=== PATIENT | female | born 1990 | race Caucasian/White ===

== ENCOUNTER 2017-11-13 13:51 | Emergency (ER) | payer OTHER ==
[~2017-11-13] VITALS: Ht 160 cm; Wt 96.2 kg
== END 2017-11-13 22:22 | disposition home or self-care (01) ==
LOC: ER 13:51
DX: R10.32 Left lower quadrant pain (principal)

== ENCOUNTER 2018-04-18 10:24 | Emergency (ER) | payer OTHER ==
[~2018-04-18] VITALS: Ht 177.8 cm; Wt 95.3 kg
== END 2018-04-18 13:09 | disposition home or self-care (01) ==
LOC: ER 10:24
DX: M54.2 Cervicalgia (principal)

== ENCOUNTER 2019-11-24 11:37 | Emergency (ER) | payer OTHER ==
[~2019-11-24] VITALS: Ht 160 cm; Wt 99.8 kg
== END 2019-11-24 21:39 | disposition home or self-care (01) ==
LOC: ER 11:37
DX: N88.8 Other specified noninflammatory disorders of cervix uteri (principal); R10.32 Left lower quadrant pain; Z03.818 Encounter for observation for suspected exposure to other biological agents ruled out

== ENCOUNTER 2021-11-05 15:26 | Emergency (ER) | payer OTHER ==
[~2021-11-05] VITALS: Ht 160 cm; Wt 104.3 kg
== END 2021-11-05 21:51 | disposition home or self-care (01) ==
LOC: ER 15:26
DX: M54.9 Dorsalgia, unspecified (principal)